=== PATIENT | male | born 1965 | race Caucasian/White ===

== ENCOUNTER 2018-03-10 18:24 | Emergency (ER) | payer OTHER ==
[2018-03-10] MEDS ORDERED: TETANUS/DIPHTHERIA/PERTUSSIS 0.5 ML SYRINGE IM ONE (18:56)
--- NOTE | 2018-03-10 18:58 | ED Physician Documentation ---
PD HPI UPPER EXT INJURY - Stated complaint Stated Complaint: FINGER INJURY - Chief complaint Chief Complaint: Ext Problem - History obtained from History obtained from: Patient - History of Present Illness Location: Left (Right-handed gentleman who is not up-to-date on tetanus was trying to fish some keys out of something with a coat sign hanger in the coat sign hanger kind of forceful he came back and he has a through and through puncture on the fourth finger and a puncture wound on the third finger. No other injuries.) Review of Systems Constitutional: reports: Reviewed and negative Nose: reports: Reviewed and negative Throat: reports: Reviewed and negative PD PAST MEDICAL HISTORY - Past Medical History Past Medical History: Yes - Past Surgical History Past Surgical History: Yes Ortho: Other HEENT: Tonsil/Adenoidectomy - Allergies Allergies/Adverse Reactions: Allergies Allergy/AdvReac Type Severity Reaction Status Date / Time Penicillins Allergy Rash Verified 03/10/18 19:12 - Social History Does the pt smoke?: No Smoking Status: Never smoker Does the pt drink ETOH?: Yes ETOH Use: Beer Does the pt have substance abuse?: No - Immunizations Immunizations: TDAP current <10years, TDAP >10years/unknown - POLST Patient has POLST: No PD ED PE NORMAL - Vitals Vital signs reviewed: Yes - General General: Alert and oriented X 3, No acute distress - Extremities Extremities: Other (There are small puncture wounds on both sides of the pulp of the tip of the left fourth finger and on the medial side of the left third finger. No tenderness or limited range of motion) - Neuro Neuro: Alert and oriented X 3, Normal speech Results - Vitals Vitals: Vital Signs - 24 hr 03/10/18 03/10/18 18:36 19:28 Temperature 37 C Heart Rate 90 90 Respiratory 16 16 Rate Blood Pressure 156/110 H 140/103 H O2 Saturation 96 96 Oxygen O2 Source Room air - Rads (name of study) 3v L hand Radiology: EMP read contemporaneously (normal) Departure - Departure Disposition: 01 Home, Self Care Clinical Impression: Puncture wound of finger of left hand Instructions: ED Wound Puncture General Comments: Your blood pressure was elevated today on check into the emergency department. This does not mean that you have hypertension, it is a common phenomenon to come to the emergency department and have elevated blood pressure. I recommend that you see your primary care physician within the week to have it rechecked when you are feeling better. Discharge Date/Time: 03/10/18 19:29
--- NOTE | 2018-03-10 19:16 | XRAY Report ---
Reason: hand inj, 3rd/4th (ganga)fingers Procedure Date: 03/10/2018 Accession Number: [id number] / [id number] Procedure: XR - Hand 3 View LT CPT Code: FULL RESULT: EXAM: LEFT HAND RADIOGRAPHY EXAM DATE: 03/10/2018 07:06 PM. CLINICAL HISTORY: Hand inj, 3rd/4th (ganga)fingers. Punctured metal coat size changer through distal third and fourth phalanges today. COMPARISON: None. TECHNIQUE: 3 views. FINDINGS: Bones: Normal. No fractures or bone lesions. Joints: Normal. No subluxations. Soft Tissues: Normal. No soft tissue swelling. IMPRESSION: Normal hand radiography. [facility]
[2018-03-10 19:28] VITALS: BP 140/103
== END 2018-03-10 19:29 | disposition home or self-care (01) ==
LOC: ED 18:24
DX: S61.233A Puncture wound without foreign body of left middle finger without damage to nail, initial encounter (principal); S61.235A Puncture wound without foreign body of left ring finger without damage to nail, initial encounter; W26.8XXA Contact with other sharp object(s), not elsewhere classified, initial encounter; Y93.89 Activity, other specified; R03.0 Elevated blood-pressure reading, without diagnosis of hypertension
CPT/HCPCS: 90471; 99283